=== PATIENT | male | born 1940 | race Caucasian/White ===

== ENCOUNTER 2016-08-14 17:05 | Emergency (ER) | payer MEDICARE, OTHER ==
[~2016-08-14] VITALS: Ht 170.2 cm; Wt 78.0 kg
[2016-08-14] MEDS ORDERED: ASPIRIN325 MG PO (19:20)
[2016-08-14] MEDS ORDERED: AMLODIPINE BES2.5 MG PO (19:20)
[2016-08-14] MEDS ORDERED: FISH OIL1 GM PO (19:21)
[2016-08-14] MEDS ORDERED: ARICEPT10 MG PO (19:21)
[2016-08-14] MEDS ORDERED: NAMENDA10 MG PO (19:23)
[2016-08-14] MEDS ORDERED: CEROVITE ADVANC1 TAB PO (19:23)
[2016-08-14] MEDS ORDERED: VITAMIN B-12100 MCG PO (19:24)
== END 2016-08-14 18:40 | disposition short-term general hospital (02) ==
LOC: ER 17:05
PROC: 0BH17EZ Insertion of Endotracheal Airway into Trachea, Via Natural or Artificial Opening (ICD-10-PCS; principal; 2016-08-14)
DX: I62.9 Nontraumatic intracranial hemorrhage, unspecified (principal); I63.9 Cerebral infarction, unspecified; E87.6 Hypokalemia; E87.1 Hypo-osmolality and hyponatremia; I10 Essential (primary) hypertension; F41.9 Anxiety disorder, unspecified; F03.90 Unspecified dementia, unspecified severity, without behavioral disturbance, psychotic disturbance, mood disturbance, and anxiety; Z79.899 Other long term (current) drug therapy; Z79.82 Long term (current) use of aspirin; Z87.891 Personal history of nicotine dependence
CPT/HCPCS: J0330; J2250

== ENCOUNTER 2016-10-14 19:59 | Emergency (ER) | payer OTHER, MEDICARE ==
[~2016-10-14] VITALS: Ht 177.8 cm; Wt 72.6 kg
[~2016-10-14 19:59] MED LIST: AMLODIPINE BES2.5 MG PO; ARICEPT10 MG PO; ASPIRIN325 MG PO; CEROVITE ADVANC1 TAB PO; FISH OIL1 GM PO; NAMENDA10 MG PO; VITAMIN B-12100 MCG PO
== END 2016-10-14 22:52 | disposition short-term general hospital (02) ==
LOC: ER 19:59
DX: R55 Syncope and collapse (principal); Z86.73 Personal history of transient ischemic attack (TIA), and cerebral infarction without residual deficits; F03.90 Unspecified dementia, unspecified severity, without behavioral disturbance, psychotic disturbance, mood disturbance, and anxiety; G81.94 Hemiplegia, unspecified affecting left nondominant side